=== PATIENT | male | born 1955 | race Caucasian/White ===

== ENCOUNTER → 2023-02-05 14:46 | Outpatient (CLI) | payer MEDICARE, SELFPAY ==
[2023-02-05 15:14] LABS: Basophils % 0.2 % (0.1-2.0); Eosinophils # 0.1 K/mm3 (0.0-0.4); Eosinophils % 1.2 % (0.1-12.0); Hematocrit 40.5 % (42.0-52.0); Hemoglobin 13.7 g/dL (14.1-18.0); Lymphocytes # 1.3 K/mm3 (0.7-4.5); Lymphocytes % 11.7 % (10-50); Mean Corpuscular HGB Conc 33.8 g/dL (31.8-35.4); Mean Corpuscular Hemoglobin 31.7 pg (27.0-31.2); Mean Corpuscular Volume 93.8 fl (80-94); Mean Platelet Volume 8.9 fl (7.4-10.4); Monocytes # 0.7 K/mm3 (0.1-1.0); Monocytes % 6.4 % (1.7-9.3); Neutrophils # 8.9 K/mm3 (1.8-7.8); Neutrophils % 80.5 % (37.0-80.0); Platelet Count 246 K/mm3 (142-424); Red Blood Count 4.31 M/mm3 (4.60-6.20)
[2023-02-05 15:39] LABS: Alanine Aminotransferase 40 U/L (12-78); Albumin Level 3.6 g/dl (3.5-5.0); Alkaline Phosphatase 106 U/L (38-126); Anion Gap 10.3 mEq/L (5-15); Aspartate Amino Transferase 38 U/L (17-59); Bilirubin,Direct 0.1 mg/dl (0.0-0.4); Bilirubin,Indirect 0.2 mg/dL (0.0-0.9); Bilirubin,Total 0.3 mg/dl (0.2-1.3); Bilirubin,Unconjugated 0.2 mg/dL (0.0-1.1); Blood Urea Nitrogen 20 mg/dl (9-20); Calcium 8.5 mg/dl (8.4-10.2); Carbon Dioxide 26 mmol/L (22.0-30.0); Chloride 103 mmol/L (98-107); Chol/HDL Ratio 2.4 (1-3.5); Cholesterol 131 mg/dl (140-200); Estimated Glomerular Filt Rate 60 ml/min (>60); GFR (African American) 73 ML/MIN (>60); Glucose 80 mg/dl (74-100); HDL Cholesterol 54 mg/dl (40-60); Magnesium 2.2 mg/dl (1.6-2.3); Potassium 4.3 mmoL/L (3.5-5.1); Sodium 135 mmol/L (136-145); Total Protein,Serum 5.9 g/dl (6.3-8.2); Triglycerides 101 mg/dl (30-150); VLDL Cholesterol 20 mg/dL (0-40)
[2023-02-05 15:51] LABS: Direct LDL Cholesterol 63.91 mg/dL (100-129)
[2023-02-05 15:56] LABS: Free T4 (Free Thyroxine) 1.12 ng/dl (0.78-2.19)
[2023-02-05 16:10] LABS: Thyroid Stimulating Hormone 1.56 uIU/mL (0.465-4.68)
== END ==
PROVIDERS: PCP Family Medicine; Visit Provider Internal Medicine
DX: C61 Malignant neoplasm of prostate (principal); I49.3 Ventricular premature depolarization; I72.8 Aneurysm of other specified arteries; R60.9 Edema, unspecified; R94.31 Abnormal electrocardiogram [ECG] [EKG]; R07.9 Chest pain, unspecified
CPT/HCPCS: 36415; 80048; 80061; 80076; 83735; 84439; 84443; 85025

== ENCOUNTER → 2023-02-13 14:38 | Outpatient (CLI) | payer MEDICARE, SELFPAY ==
[2023-02-13 18:00] LABS: Total Volume,Urine 2650 mL (250-2400)
[2023-02-13 18:01] LABS: Total Protein 24 Hour,Urine 345 mg/24 hr (40-90)
== END ==
PROVIDERS: PCP Family Medicine; Visit Provider Internal Medicine
DX: C61 Malignant neoplasm of prostate (principal); I49.3 Ventricular premature depolarization; I72.8 Aneurysm of other specified arteries; R60.9 Edema, unspecified; R94.31 Abnormal electrocardiogram [ECG] [EKG]
CPT/HCPCS: 84155

== ENCOUNTER → 2023-02-17 13:09 | Outpatient (CLI) | payer MEDICARE, SELFPAY ==
--- NOTE | 2023-02-17 13:09 | CA_ITS ---
APPROVED REPORT EXAM: Comprehensive 2D, Doppler, and color-flow Echocardiogram Commissions Analyst: Cherelle Pearson, RT(R) Ht: 5 ft 9 in Wt: 210lbs BSA: 2.11 BP: 140/98 mmHg Indications: abn EKG, edema, fatigue, hx prostate CA, hx radiation, hx gastric bypass, technically difficult. 2D Dimensions LVOT 1.93 cm (M/F) 1.5-2.5 LA Volume 22.20 mL LA Volume Index 10.52 mL/m2 (M/F) 16-34 M-Mode Dimensions RVDd 3.03 cm (0.9-2.6) LA Diam 4.75 cm (1.9-4.0) LVDd 5.35 cm (3.5-5.7) Ao Diam 2.83 cm (2.0-3.7) LVDs 4.01 cm (3.5-5.7) IVSd 1.03 cm (0.6-1.1) PWd 1.07 cm (0.6-1.1) EF (Teich) 49.10% FS 25.00% EDV (Teich) 138.30 mL ESV (Teich) 70.40 mL LV Diastology E Decel Time 470.00 (160-240 msec) E/A Ratio 0.59 MED E' 5.40 (< 7 cm/sec) MED A' 10.80 cm/s E'/MED E' Ratio 12.46 (>14) LAT E' 5.20 (<10 cm/sec) LAT A' 10.00 cm/s E/LAT E' Ratio 12.94 (>14) Aortic Valve LVOT Max 93.00 (70-110 cm/s) LVOT VTI 19.25 cm AoV Peak Ramy. 224.00 (50-130 cm/s) AO Peak GR. 20.10 mmHg AO Mean GR. 10.00 (<5 mmHg) AO VTI 45.90 (18-25 cm) MAYURI (VTI) 1.23 (2.5-4.5 cm2) Mitral Valve MV A Velocity 115.00 (40-130 cm/s) E/A Ratio 0.59 MV Decel. Time 470.00 (160-240 ms) Left Ventricle The left ventricle is normal size. The left ventricular systolic function is normal. The left ventricular ejection fraction is within the normal range. There is increased LV wall thickness. There is normal LV segmental wall motion. Diastolic function is indeterminate. LVEF is 55%. Right Ventricle The right ventricle is normal size. The right ventricular systolic function is normal. There is increased RV wall thickness. Atria The left atrium size is normal. The right atrium size is normal. There is no Doppler evidence of interatrial shunt. Aortic Valve The aortic valve leaflets are mildly thickened. There is no aortic valvular stenosis. Trace aortic regurgitation. Mitral Valve The mitral valve leaflets are mildly thickened. No evidence of mitral valve stenosis. Trace mitral regurgitation. Tricuspid Valve The tricuspid valve leaflets are thin and pliable. Mild tricuspid regurgitation. RVSP is normal. RVSP is 25-30 mmHg. Pulmonic Valve The pulmonary valve is normal in structure. Trace pulmonic regurgitation. Great Vessels The aortic root is normal in size. The ascending aorta is normal in size. IVC is normal in size and collapses >50% with inspiration. Pericardium There is no pericardial effusion. Other Information Study Quality: Fair Conclusion Normal biventricular systolic function. Mild TR. Electronically signed by : Marium Bonds MD 02/27/2023 18:04:58
== END ==
LOC: RT 13:09
PROVIDERS: PCP Family Medicine; Visit Provider Internal Medicine
DX: I49.3 Ventricular premature depolarization (principal); I72.8 Aneurysm of other specified arteries; R07.9 Chest pain, unspecified; R60.9 Edema, unspecified; R94.31 Abnormal electrocardiogram [ECG] [EKG]; C61 Malignant neoplasm of prostate
CPT/HCPCS: 93225; 93306

== ENCOUNTER → 2023-03-17 12:23 | Outpatient (CLI) | payer MEDICARE, SELFPAY ==
[2023-03-17 13:02] LABS: Anion Gap 6.1 mEq/L (5-15); Blood Urea Nitrogen 19 mg/dl (9-20); Calcium 8.2 mg/dl (8.4-10.2); Carbon Dioxide 33 mmol/L (22.0-30.0); Chloride 98 mmol/L (98-107); Estimated Glomerular Filt Rate 55 ml/min (>60); GFR (African American) 66 ML/MIN (>60); Glucose 102 mg/dl (74-100); Magnesium 2.1 mg/dl (1.6-2.3); Potassium 4.1 mmoL/L (3.5-5.1); Sodium 133 mmol/L (136-145)
== END ==
PROVIDERS: PCP Family Medicine; Visit Provider Internal Medicine
DX: I49.3 Ventricular premature depolarization (principal); I51.89 Other ill-defined heart diseases; I72.8 Aneurysm of other specified arteries; R53.83 Other fatigue; R60.9 Edema, unspecified; R94.31 Abnormal electrocardiogram [ECG] [EKG]
CPT/HCPCS: 36415; 80048; 83735